=== PATIENT | female | born 1970 | race Caucasian/White ===

== ENCOUNTER 2017-03-23 16:38 | Inpatient (IN) | payer BC ==
[~2017-03-23] VITALS: Ht 170.2 cm; Wt 59.0 kg
[2017-03-23 18:48] VITALS: BP_SYST 126
[2017-03-23] MEDS ORDERED: HYDR25TA4 PO (18:51)
[2017-03-23] MEDS ORDERED: RIVA10TA PO (18:51)
[2017-03-23] MEDS ORDERED: TEMA15CA51 PO (18:51)
[2017-03-23] MEDS ORDERED: HYDR12.55 (18:51)
[2017-03-23] MEDS ORDERED: OMEP20TA20 PO (18:51)
[2017-03-23] MEDS ORDERED: CHOL2000 PO (18:51)
[2017-03-23] MEDS ORDERED: BUPR300T55 PO (18:51)
[2017-03-23] MEDS ORDERED: CHOL500037 PO (18:51)
[2017-03-23 20:00] VITALS: BP_SYST 102
[2017-03-23] MEDS ORDERED: VANCOMYCIN HCL 1 GM/NS PREMIX 250 ML IV ONE (21:00)
[2017-03-23] MEDS: OMEPRAZOLE 20 MG CAPSULE.DR (PriLOSEC) PO SCH (22:19)
[2017-03-23] MEDS ORDERED: VANCOMYCIN HCL 1000 MG/VIAL IV ONE (22:44)
[2017-03-23] MEDS: HYDROmorphone 1 MG INJ. 1 MG/ML AMPUL IVP PRN (23:05)
[2017-03-23] MEDS: TEMAZEPAM 15 MG CAPSULE PO PRN (23:06)
[2017-03-24] VITALS (7 sets, daily range): BP systolic 88–119
[2017-03-24] MEDS ORDERED: LEVOFLOXACIN 500 MG/D5W 100 ML IV ONE ×2 (03:15→04:26)
[2017-03-24] MEDS: HYDROmorphone 1 MG INJ. 1 MG/ML AMPUL IVP PRN ×5 (04:39→22:41)
[2017-03-24 07:42] LABS: BASOPHILS % (AUTO) 0.5 % (0.0-2.0); EOSINOPHILS # (AUTO) 0.1 K/uL (0.0-0.4); EOSINOPHILS % (AUTO) 2.4 % (0.0-4.0); HEMATOCRIT 31.9 % (36-48); LYMPHOCYTES # (AUTO) 1.7 K/uL (1.0-5.5); LYMPHOCYTES % (AUTO) 39.4 % (20.5-51.5); MEAN CORPUSCULAR HEMOGLOBIN 34 pg (27-31); MEAN CORPUSCULAR HGB CONC 34 % (32-36); MEAN CORPUSCULAR VOLUME 98 fL (79.0-98.0); MONOCYTES # (AUTO) 0.5 K/uL (0.0-1.0); MONOCYTES % (AUTO) 11.5 % (1.7-9.3); NEUTROPHILS # (AUTO) 2.1 K/uL (1.8-7.7); NEUTROPHILS % (AUTO) 46.2 % (40.0-70.0); PLATELET COUNT (AUTO) 211 K/uL (130-430); RED BLOOD CELL COUNT(AUTO) 3.25 MIL/uL (4.2-6.2); RED CELL DISTRIBUTION WIDTH 12.1 % (9.0-15.0); WHITE BLOOD COUNT (AUTO) 4.4 K/uL (4.8-10.8)
[2017-03-24 08:13] LABS: CALCIUM 8.2 mg/dL (8.4-11.0); CREATININE 0.72 mg/dL (0.55-1.30); POTASSIUM 3.6 mmol/L (3.5-5.1)
[2017-03-24] MEDS: buPROPion HCL 150 MG XL TAB PO SCH (08:53)
[2017-03-24] MEDS: OMEPRAZOLE 20 MG CAPSULE.DR (PriLOSEC) PO SCH ×2 (08:53→20:22)
[2017-03-24] MEDS: RIVAROXABAN 10 MG TABLET PO SCH (08:54)
[2017-03-24] MEDS: CHOLECALCIFEROL (VITAMIN D3) 2,000 UNIT TABLET PO SCH (08:54)
[2017-03-24] MEDS: HYDROCHLOROTHIAZIDE 12.5 MG CAPSULE (HCTZ) PO SCH (08:55)
[2017-03-24] MEDS: VANCOMYCIN HCL 750 MG in NS 250 ML IV SCH ×2 (11:00→22:37)
[2017-03-24] MEDS ORDERED: MILK OF MAGNESIA 30 ML UDC PO PRN (19:00)
[2017-03-24] MEDS: DOCUSATE SODIUM 250 MG CAPSULE PO SCH (20:21)
[2017-03-24] MEDS: LEVOFLOXACIN 500 MG/D5W 100 ML IV SCH (20:22)
[2017-03-24] MEDS: TEMAZEPAM 15 MG CAPSULE PO PRN (22:36)
[2017-03-25] MEDS: HYDROmorphone 1 MG INJ. 1 MG/ML AMPUL IVP PRN ×5 (04:42→23:22)
[2017-03-25 04:45] VITALS: BP_SYST 83
[2017-03-25 08:00] VITALS: BP_SYST 91
[2017-03-25] MEDS: CHOLECALCIFEROL (VITAMIN D3) 2,000 UNIT TABLET PO SCH (09:00)
[2017-03-25] MEDS: RIVAROXABAN 10 MG TABLET PO SCH (09:42)
[2017-03-25] MEDS: DOCUSATE SODIUM 250 MG CAPSULE PO SCH ×2 (09:42→21:23)
[2017-03-25] MEDS: HYDROCHLOROTHIAZIDE 12.5 MG CAPSULE (HCTZ) PO SCH (09:42)
[2017-03-25] MEDS: buPROPion HCL 150 MG XL TAB PO SCH (09:43)
[2017-03-25] MEDS: OMEPRAZOLE 20 MG CAPSULE.DR (PriLOSEC) PO SCH ×2 (09:43→21:23)
[2017-03-25] MEDS: VANCOMYCIN HCL 750 MG in NS 250 ML IV SCH ×2 (12:14→23:18)
[2017-03-25 12:48] VITALS: BP_SYST 97
[2017-03-25] MEDS ORDERED: FLUCONAZOLE 100 MG TABLET (DIFLUCAN) PO ONE (16:45)
[2017-03-25] MEDS ORDERED: IBUPROFEN 800 MG TABLET PO PRN (16:45)
[2017-03-25 17:05] VITALS: BP_SYST 94
[2017-03-25 20:00] VITALS: BP_SYST 88
[2017-03-25] MEDS: LEVOFLOXACIN 500 MG/D5W 100 ML IV SCH (21:24)
[2017-03-25] MEDS: TEMAZEPAM 15 MG CAPSULE PO PRN (23:20)
[2017-03-25 23:48] VITALS: BP_SYST 97
[2017-03-26] MEDS: MILK OF MAGNESIA 30 ML UDC PO PRN (04:28)
[2017-03-26] MEDS: HYDROmorphone 1 MG INJ. 1 MG/ML AMPUL IVP PRN ×5 (04:28→23:10)
[2017-03-26 04:45] VITALS: BP_SYST 84
[2017-03-26 08:05] VITALS: BP_SYST 102
[2017-03-26] MEDS: CHOLECALCIFEROL (VITAMIN D3) 2,000 UNIT TABLET PO SCH (09:00)
[2017-03-26] MEDS: OMEPRAZOLE 20 MG CAPSULE.DR (PriLOSEC) PO SCH ×2 (10:09→21:50)
[2017-03-26] MEDS: FLUCONAZOLE 100 MG TABLET (DIFLUCAN) PO SCH (10:10)
[2017-03-26] MEDS: HYDROCHLOROTHIAZIDE 12.5 MG CAPSULE (HCTZ) PO SCH (10:10)
[2017-03-26] MEDS: buPROPion HCL 150 MG XL TAB PO SCH (10:10)
[2017-03-26] MEDS: RIVAROXABAN 10 MG TABLET PO SCH (10:11)
[2017-03-26] MEDS: DOCUSATE SODIUM 250 MG CAPSULE PO SCH ×2 (10:11→21:50)
[2017-03-26] MEDS: VANCOMYCIN HCL 750 MG in NS 250 ML IV SCH ×2 (10:20→23:16)
[2017-03-26 11:27] VITALS: BP_SYST 102
[2017-03-26 15:24] VITALS: BP_SYST 108
[2017-03-26 20:00] VITALS: BP_SYST 98
[2017-03-26] MEDS: LEVOFLOXACIN 500 MG/D5W 100 ML IV SCH (21:51)
[2017-03-26] MEDS: TEMAZEPAM 15 MG CAPSULE PO PRN (21:52)
[2017-03-27] MEDS: HYDROmorphone 1 MG INJ. 1 MG/ML AMPUL IVP PRN ×5 (04:54→22:39)
[2017-03-27 08:41] VITALS: BP_SYST 95
[2017-03-27] MEDS: DOCUSATE SODIUM 250 MG CAPSULE PO SCH ×2 (08:44→20:53)
[2017-03-27] MEDS: RIVAROXABAN 10 MG TABLET PO SCH (08:48)
[2017-03-27] MEDS: FLUCONAZOLE 100 MG TABLET (DIFLUCAN) PO SCH (08:48)
[2017-03-27] MEDS: OMEPRAZOLE 20 MG CAPSULE.DR (PriLOSEC) PO SCH ×2 (08:48→20:53)
[2017-03-27] MEDS: CHOLECALCIFEROL (VITAMIN D3) 2,000 UNIT TABLET PO SCH (08:50)
[2017-03-27] MEDS: buPROPion HCL 150 MG XL TAB PO SCH (08:55)
[2017-03-27] MEDS: HYDROCHLOROTHIAZIDE 12.5 MG CAPSULE (HCTZ) PO SCH (10:30)
[2017-03-27] MEDS: VANCOMYCIN HCL 750 MG in NS 250 ML IV SCH ×2 (10:31→22:38)
[2017-03-27 11:20] VITALS: BP_SYST 121
[2017-03-27 15:26] VITALS: BP_SYST 97
[2017-03-27 20:00] VITALS: BP_SYST 99
[2017-03-27] MEDS: LEVOFLOXACIN 500 MG/D5W 100 ML IV SCH (20:53)
[2017-03-27] MEDS: TEMAZEPAM 15 MG CAPSULE PO PRN (22:40)
[2017-03-28] VITALS: BP_SYST 112
[2017-03-28 00:06] VITALS: BP_SYST 147
[2017-03-28] MEDS: HYDROmorphone 1 MG INJ. 1 MG/ML AMPUL IVP PRN ×4 (03:44→22:28)
[2017-03-28 07:45] LABS: CALCIUM 9.4 mg/dL (8.4-11.0); CREATININE 0.68 mg/dL (0.55-1.30); POTASSIUM 4.3 mmol/L (3.5-5.1)
[2017-03-28 08:23] VITALS: BP_SYST 104
[2017-03-28] MEDS: MILK OF MAGNESIA 30 ML UDC PO PRN (08:46)
[2017-03-28] MEDS: DOCUSATE SODIUM 250 MG CAPSULE PO SCH ×2 (08:47→20:55)
[2017-03-28] MEDS: FLUCONAZOLE 100 MG TABLET (DIFLUCAN) PO SCH (08:47)
[2017-03-28] MEDS: RIVAROXABAN 10 MG TABLET PO SCH (08:47)
[2017-03-28] MEDS: CHOLECALCIFEROL (VITAMIN D3) 2,000 UNIT TABLET PO SCH (08:47)
[2017-03-28] MEDS: buPROPion HCL 150 MG XL TAB PO SCH (08:47)
[2017-03-28] MEDS: OMEPRAZOLE 20 MG CAPSULE.DR (PriLOSEC) PO SCH ×2 (08:47→20:55)
[2017-03-28] MEDS: HYDROCHLOROTHIAZIDE 12.5 MG CAPSULE (HCTZ) PO SCH (08:48)
[2017-03-28] MEDS: VANCOMYCIN HCL 750 MG in NS 250 ML IV SCH ×2 (10:51→22:25)
[2017-03-28 11:20] VITALS: BP_SYST 112
[2017-03-28 15:54] VITALS: BP_SYST 110
[2017-03-28 20:00] VITALS: BP_SYST 103
[2017-03-28] MEDS: LEVOFLOXACIN 500 MG/D5W 100 ML IV SCH (20:55)
[2017-03-28] MEDS: TEMAZEPAM 15 MG CAPSULE PO PRN (22:28)
[2017-03-29] MEDS: HYDROmorphone 1 MG INJ. 1 MG/ML AMPUL IVP PRN ×3 (06:35→19:39)
[2017-03-29 08:00] VITALS: BP_SYST 101
[2017-03-29] MEDS: FLUCONAZOLE 100 MG TABLET (DIFLUCAN) PO SCH (09:47)
[2017-03-29] MEDS: buPROPion HCL 150 MG XL TAB PO SCH (09:47)
[2017-03-29] MEDS: OMEPRAZOLE 20 MG CAPSULE.DR (PriLOSEC) PO SCH (09:47)
[2017-03-29] MEDS: CHOLECALCIFEROL (VITAMIN D3) 2,000 UNIT TABLET PO SCH (09:48)
[2017-03-29] MEDS: DOCUSATE SODIUM 250 MG CAPSULE PO SCH (09:48)
[2017-03-29] MEDS: RIVAROXABAN 10 MG TABLET PO SCH (09:48)
[2017-03-29] MEDS: HYDROCHLOROTHIAZIDE 12.5 MG CAPSULE (HCTZ) PO SCH (09:48)
[2017-03-29 11:22] VITALS: BP_SYST 104
[2017-03-29] MEDS: VANCOMYCIN HCL 750 MG in NS 250 ML IV SCH ×2 (11:37→18:50)
[2017-03-29 15:20] VITALS: BP_SYST 102
[2017-03-29 19:52] VITALS: BP_SYST 110
[2017-03-29] MEDS ORDERED: LINE600T PO (20:14)
[2017-03-29] MEDS ORDERED: HYDR-2489 PO (20:17)
[2017-03-29] MEDS ORDERED: LEVO500T20 PO (20:18)
== END 2017-03-29 21:25 | disposition home or self-care (01) | DRG 863 ==
LOC: SMU 16:38
PROVIDERS: ADMIT Family Medicine; ATTEND Family Medicine
DX: T81.4XXA Infection following a procedure, initial encounter (principal); D68.61 Antiphospholipid syndrome; L03.115 Cellulitis of right lower limb; K59.00 Constipation, unspecified; I73.00 Raynaud's syndrome without gangrene; K21.9 Gastro-esophageal reflux disease without esophagitis; K31.84 Gastroparesis; Z90.3 Acquired absence of stomach [part of]; Z91.041 Radiographic dye allergy status; Z88.8 Allergy status to other drugs, medicaments and biological substances; Z88.0 Allergy status to penicillin; Z88.1 Allergy status to other antibiotic agents; Z90.710 Acquired absence of both cervix and uterus; Z90.49 Acquired absence of other specified parts of digestive tract; Y83.8 Other surgical procedures as the cause of abnormal reaction of the patient, or of later complication, without mention of misadventure at the time of the procedure; Y92.89 Other specified places as the place of occurrence of the external cause
CPT/HCPCS: 36415; 80048; 80202-TC; 85025; J1170; J1956; J3370; J7050